=== PATIENT | female | born 1980 | race Caucasian/White ===

== ENCOUNTER → 2016-06-06 | Outpatient (CLI) | payer BC ==
[2016-06-06 16:47] LABS: BASO % 0.4 %; BASO ABS # 0.02 K/uL (0-0.2); COMPLETE YES; EOS % 1.1 %; HEMATOCRIT 40.3 % (37-47); LYMPH % 48.9 %; LYMPH ABS # 2.78 K/uL (1.2-3.4); MEAN CELL VOLUME 88.6 fL (80-100); MEAN CORPUSCULAR HEMOGLOBIN 30.3 pg (25-34); MEAN CORPUSCULAR HGB CONC 34.2 g/dl (32-36); MEAN PLATELET VOLUME 11.2 fL (7.4-10.4); MONO % 10.5 %; NEUT % 39.1 %; PLATELET COUNT 179 K/uL (130-400); RED BLOOD COUNT 4.55 M/uL (4.2-5.4); WHITE BLOOD COUNT 5.69 K/uL (4.8-10.8)
[2016-06-06 17:00] LABS: BLOOD UREA NITROGEN 10 mg/dl (7-18); BUN/CREATININE RATIO 11.5 (10-20); CALCIUM 8.8 mg/dl (8.5-10.1); CARBON DIOXIDE 27 mmol/L (21-32); CHLORIDE 104 mmol/L (98-107); CREATININE 0.85 mg/dl (0.60-1.20); GLUCOSE 103 mg/dl (70-99); POTASSIUM 3.7 mmol/L (3.5-5.1); SODIUM 141 mmol/L (136-145)
== END | disposition home or self-care (01) ==
LOC: C.LABBFT 16:51
PROVIDERS: ATTEND Nurse Practitioner
DX: R31.9 Hematuria, unspecified (principal)

== ENCOUNTER → 2016-06-06 | Outpatient (CLI) | payer BC ==
--- NOTE | 2016-06-06 15:28 | DIAGNOSTIC IMAGING REPORT ---
KUB CLINICAL HISTORY: Nephrolithiasis COMPARISON STUDY: CT scan performed 2008 FINDINGS: There is moderate stool throughout the colon. This partially secures the renal shadows. There is a 5 mm right renal calculus. No left renal calculi are visualized. There is a small calcific opacity projected over the region of the splenic flexure, possibly relating to enteric contents. There are tiny pelvic basin calcifications likely representing phleboliths. IMPRESSION: 1. 5 mm right renal calculus 2. Largely obscured left renal shadow Electronically signed by: Nicolas Riddle M.D. 06/06/2016 3:25 PM
== END | disposition home or self-care (01) ==
LOC: C.RAD1850 15:13
PROVIDERS: ATTEND Nurse Practitioner
DX: N20.0 Calculus of kidney (principal); R31.9 Hematuria, unspecified

== ENCOUNTER 2016-06-08 18:35 | Emergency (ER) | payer BC ==
[~2016-06-08] VITALS: Ht 167.6 cm; Wt 60.0 kg
[2016-06-08 18:42] VITALS: TEMP 37; Ht 167.6 cm; Wt 60.0 kg
[2016-06-08 19:23] LABS: BASO % 0.6 %; BASO ABS # 0.04 K/uL (0-0.2); COMPLETE YES; EOS % 1.2 %; HEMATOCRIT 42.2 % (37-47); IG% 0.2 %; LYMPH % 47.4 %; LYMPH ABS # 3.11 K/uL (1.2-3.4); MEAN CELL VOLUME 88.5 fL (80-100); MEAN CORPUSCULAR HEMOGLOBIN 30.2 pg (25-34); MEAN CORPUSCULAR HGB CONC 34.1 g/dl (32-36); MEAN PLATELET VOLUME 10.9 fL (7.4-10.4); MONO % 8.5 %; NEUT % 42.1 %; PLATELET COUNT 212 K/uL (130-400); RED BLOOD COUNT 4.77 M/uL (4.2-5.4); WHITE BLOOD COUNT 6.56 K/uL (4.8-10.8)
[2016-06-08 19:28] LABS: ISTAT CREATININE 0.8 mg/dl (0.6-1.3); ISTAT HEMOGLOBIN 14.3 g/dl (12.0-16.0); ISTAT IONIZED CALCIUM 1.22 mmol/l (1.12-1.32)
[2016-06-08 19:28] LABS: URINE APPEARANCE CLEAR (CLEAR); URINE BILIRUBIN NEG (NEG); URINE COLOR YELLOW; URINE EPITHELIAL CELL AUTO 0-5 /lpf (0-5); URINE NITRITE NEG (NEG); UROBILINOGEN NEG (NEG); ZZUR CULT IF INDIC CLEAN CATCH NO
[2016-06-08 19:30] LABS: BUN/CREATININE RATIO 9.2 (10-20); CREATININE 0.86 mg/dl (0.60-1.20); POTASSIUM 3.3 mmol/L (3.5-5.1)
[2016-06-08 19:32] LABS: MANUAL MICROSCOPIC REQUIRED? NO; REVIEW REQ? NO
[2016-06-08 19:33] LABS: ALB/GLOB RATIO 1.2 (0.9-2)
--- NOTE | 2016-06-08 19:37 | EMERGENCY ROOM VISIT NOTE ---
History First contact with patient: 18:46 Chief Complaint: HEMATURIA Stated Complaint: CT SCAN- KIDNEY STONES, RLQ PAIN Nursing Triage Summary: Pt reports hematuria over the weekend. 5mm kidney stone per KUB. Pt reports had outpt CT for kidney stone and told possible acute appy. Pt then to be rescanned with oral contrast which was given outpt and to be scanned at 1845. Pt told to return to the ER for the scan d/t insurance reasons. Denies right abd pain. History of Present Illness The patient is a 36 year old female who presents to the Emergency Room with complaints of abdominal pain. The patient reports that she has had hematuria on and off for the past several months. She was seen at her primary care provider's office earlier this week due to hematuria and "kidney pain" and states that she had a KUB which showed a 5 mm kidney stone in the right kidney, but no obstructing stones. The patient had labs drawn at that time which were normal. The patient states that she had a CT scan done today without contrast to rule out obstructing stone, but was called by her primary care provider telling her that she possibly had an appendicitis and would need a CT scan with IV and oral contrast. The patient was sent home with oral contrast and has completed drinking this. She denies any significant discomfort at this time, but does state that she is tender to palpation in the mid abdomen. She denies any nausea, vomiting, fevers or chills. He denies any history of abdominal surgery. Review of Systems A complete 10-point Review of Systems was discussed with the patient, with pertinent positives and negatives listed in the History of Present Illness. All remaining Review of Systems questions can be considered negative unless otherwise specified. Social History Smoking Status: Never Smoker Current/Historical Medications No Active Prescriptions or Reported Meds Allergies Coded Allergies: No Known Allergies (Verified , 06/08/16) Physical Exam Vital Signs Date Time Temp Pulse Resp B/P Pulse Ox O2 Delivery O2 Flow Rate FiO2 06/08/16 20:40 65 18 115/80 97 Room Air 06/08/16 18:42 37.0 72 18 143/80 97 Room Air Physical Exam VITALS: Vitals are noted on the nurse's note and reviewed by myself. Vital signs stable. GENERAL: This is a 36-year-old female, in no acute distress, nondiaphoretic, well-developed well-nourished. SKIN: Capillary reflex less than 2 seconds.gidity. HEART: Regular rate and rhythm without murmurs gallops or rubs. LUNGS: Clear to auscultation bilaterally without wheezes, rales or rhonchi. No retractions or accessory muscle use. ABDOMEN: Positive bowel sounds 4. There is minimal tenderness to the left mid abdomen and suprapubic region. NEURO: Patient was alert and oriented to person place and time. Medical Decision & Procedures ER Provider Diagnostic Interpretation: CT PELVIS W/IV AND ORAL CONT (CT) FINDINGS: There is no evidence of abdominal aortic dilatation. There is no evidence of pathologic adenopathy. There is no evidence of acute diverticulitis. The appendix appears normal. There is no free fluid. There is a 22 mm involuting right ovarian follicle. No bladder calculi are visualized. IMPRESSION: 1. Normal appendix 2. No acute inflammatory changes 3. 22 mm involuting right ovarian follicle Laboratory Results 06/08/16 19:00 Red Blood Count 4.77, Mean Corpuscular Volume 88.5, Mean Corpuscular Hemoglobin 30.2, Mean Corpuscular Hemoglobin Concent 34.1, Mean Platelet Volume 10.9, Neutrophils (%) (Auto) 42.1, Lymphocytes (%) (Auto) 47.4, Monocytes (%) (Auto) 8.5, Eosinophils (%) (Auto) 1.2, Basophils (%) (Auto) 0.6, Neutrophils # (Auto) 2.76, Lymphocytes # (Auto) 3.11, Monocytes # (Auto) 0.56, Eosinophils # (Auto) 0.08, Basophils # (Auto) 0.04 06/08/16 19:00 Test 06/08/16 19:00 06/08/16 19:12 White Blood Count 6.56 K/uL (4.8-10.8) Red Blood Count 4.77 M/uL (4.2-5.4) Hemoglobin 14.4 g/dL (12.0-16.0) Hematocrit 42.2 % (37-47) Mean Corpuscular Volume 88.5 fL (80-100) Mean Corpuscular Hemoglobin 30.2 pg (25-34) Mean Corpuscular Hemoglobin Concent 34.1 g/dl (32-36) Platelet Count 212 K/uL (130-400) Mean Platelet Volume 10.9 fL (7.4-10.4) Neutrophils (%) (Auto) 42.1 % Lymphocytes (%) (Auto) 47.4 % Monocytes (%) (Auto) 8.5 % Eosinophils (%) (Auto) 1.2 % Basophils (%) (Auto) 0.6 % Neutrophils # (Auto) 2.76 K/uL (1.4-6.5) Lymphocytes # (Auto) 3.11 K/uL (1.2-3.4) Monocytes # (Auto) 0.56 K/uL (0.11-0.59) Eosinophils # (Auto) 0.08 K/uL (0-0.5) Basophils # (Auto) 0.04 K/uL (0-0.2) RDW Standard Deviation 41.2 fL (36.4-46.3) RDW Coefficient of Variation 12.8 % (11.5-14.5) Immature Granulocyte % (Auto) 0.2 % Immature Granulocyte # (Auto) 0.01 K/uL (0.00-0.02) Urine Color YELLOW Urine Appearance CLEAR (CLEAR) Urine pH 6.0 (4.5-7.5) Urine Specific [place] 1.000 (1.000-1.030) Urine Protein NEG (NEG) Urine Glucose (UA) NEG (NEG) Urine Ketones NEG (NEG) Urine Occult Blood TRACE (NEG) Urine Nitrite NEG (NEG) Urine Bilirubin NEG (NEG) Urine Urobilinogen NEG (NEG) Urine Leukocyte Esterase NEG (NEG) Urine WBC (Auto) 0 /hpf (0-5) Urine RBC (Auto) 0-4 /hpf (0-4) Urine Hyaline Casts (Auto) 0 /lpf (0-5) Urine Epithelial Cells (Auto) 0-5 /lpf (0-5) Urine Bacteria (Auto) NEG (NEG) Urine Test NEG (NEG) Est Creatinine Clear Calc Drug Dose 83.0 ml/min Estimated GFR () 99.3 Estimated GFR (Non- 85.7 BUN/Creatinine Ratio 9.2 (10-20) Calcium Level 9.0 mg/dl (8.5-10.1) Total Bilirubin 0.5 mg/dl (0.2-1) Aspartate Amino Transf (AST/SGOT) 16 U/L (15-37) Alanine Aminotransferase (ALT/SGPT) 16 U/L (12-78) Alkaline Phosphatase 56 U/L (45-117) Total Protein 7.6 gm/dl (6.4-8.2) Albumin 4.1 gm/dl (3.4-5.0) Globulin 3.5 gm/dl (2.5-4.0) Albumin/Globulin Ratio 1.2 (0.9-2) Bedside Hemoglobin 14.3 g/dl (12.0-16.0) Bedside Hematocrit 42 % (37-47) Bedside Sodium 142 mEq/L (135-144) Bedside Potassium 3.4 mEq/L (3.3-5.0) Bedside Chloride 101 mEq/L (101-112) Bedside Total CO2 24 mEq/l (24-31) Anion Gap 21.0 mmol/L (16-25) Bedside Blood Urea Nitrogen 7 mg/dl (7-18) Bedside Creatinine 0.8 mg/dl (0.6-1.3) Bedside Glucose (other) 109 mg/dl (70-99) Bedside Ionized Calcium (Fredi) 1.22 mmol/l (1.12-1.32) Medical Decision Differential diagnosis includes appendicitis, cholecystitis, kidney stone, urinary tract infection, among others. The patient was evaluated as above. Labs were drawn and IV access was obtained. The patient was sent here for CT of the pelvis with IV and oral contrast to rule out a possible appendicitis seen on noncontrasted CT earlier today. The patient has no complaints at this time. She has minimal tenderness on examination. CT of the abdomen and pelvis with IV and oral contrast was able to visualize the appendix fully and showed a normal appendix without any inflammatory findings. Labs revealed no leukocytosis, anemia or concerning electrolyte abnormality. Urinalysis did show trace blood but no signs of infections. The patient was informed of the findings and will follow-up with her primary care provider. She verbalized understanding and was discharged home in good condition. Impression Primary Impression: Hematuria Departure Information Dispostion Home / Self-Care Condition GOOD Prescriptions No Active Prescriptions or Reported Meds Referrals Bruce Baez M.D. (PCP) Patient Instructions A [employer], [employer] Additional Instructions CT scan did not show evidence of appendicitis. Follow-up with Dr. Baez for further evaluation.
[2016-06-08] MEDS ORDERED: OPTIRAY 320 IV PRN (19:45)
--- NOTE | 2016-06-08 19:49 | DIAGNOSTIC IMAGING REPORT ---
CT PELVIS W/IV AND ORAL CONT (CT) CT DOSE: 167.00 mGy.cm CLINICAL HISTORY: Nephrolithiasis, hematuria. Possible appendicitis on prior noncontrast CT scan. TECHNIQUE: The patient was scanned following administration of dilute oral contrast, and in a dynamic helical fashion during intravenous administration of 110 cc of Optiray [id number]. COMPARISON STUDY: Noncontrast study dated 06/08/2016 FINDINGS: There is no evidence of abdominal aortic dilatation. There is no evidence of pathologic adenopathy. There is no evidence of acute diverticulitis. The appendix appears normal. There is no free fluid. There is a 22 mm involuting right ovarian follicle. No bladder calculi are visualized. IMPRESSION: 1. Normal appendix 2. No acute inflammatory changes 3. 22 mm involuting right ovarian follicle Electronically signed by: Nicolas Riddle M.D. 06/08/2016 7:48 PM Dictated Date/Time: 06/08/2016 7:43 PM
[2016-06-08 20:40] VITALS: BP 115/80; PULSE 65; O2SAT 97
== END 2016-06-08 20:59 | disposition home or self-care (01) ==
LOC: C.EDB 18:36
DX: R31.9 Hematuria, unspecified (principal)

== ENCOUNTER → 2016-06-08 | Outpatient (CLI) | payer BC ==
--- NOTE | 2016-06-08 16:15 | DIAGNOSTIC IMAGING REPORT ---
ABDOMEN AND PELVIS CT WITHOUT CONTRAST CT DOSE: 299.54 mGy.cm HISTORY: Flank pain. N20.0 [id number] Hematuria r/o [id number] TECHNIQUE: Multiaxial CT images of the abdomen and pelvis were performed without contrast. COMPARISON STUDY: KUB 06/06/2016. Abdomen and pelvis CT 07/02/2008. FINDINGS: The lung bases are clear. No fractures within the visualized osseous structures. The liver, gallbladder, spleen, adrenal glands, left kidney, and pancreas are unremarkable. No retroperitoneal lymphadenopathy. Trace pelvic free fluid, unchanged. The bladder, uterus, bilateral adnexa are unremarkable. The ureters are difficult to follow due to the lack of intraperitoneal fat. There is a 5 mm stone within the right kidney. No hydronephrosis. No definite ureteral calculi. Suboptimal evaluation for bowel pathology due to the lack of intravenous and oral contrast. However, there is no definite bowel obstruction. The appendix appears to be identified within a retrocecal location. The tip of the appendix appears fluid-filled and mildly distended up to 8 mm. There is suggestion of mild periappendiceal fat stranding. The proximal appendix is normal in caliber. The tip of the appendix is best in image 262 of [id number]. IMPRESSION: 1. Difficult evaluation for bowel pathology due to the lack of intravenous and oral contrast. However, the appendix appears to be fluid-filled and mildly distended up to 8 mm. There may be mild periappendiceal fat stranding. This is concerning for acute appendicitis. A dedicated CT of the pelvis with intravenous and oral contrast is recommended for confirmation. 2. Right-sided nephrolithiasis. No hydronephrosis. 3. Trace pelvic free fluid. Electronically signed by: Manpreet Venegas M.D. 06/08/2016 4:13 PM Dictated Date/Time: 06/08/2016 3:48 PM
== END | disposition home or self-care (01) ==
LOC: C.CTS 15:32
PROVIDERS: ATTEND Nurse Practitioner
DX: N20.0 Calculus of kidney (principal); R31.9 Hematuria, unspecified

== ENCOUNTER → 2017-10-09 | Outpatient (CLI) | payer BC ==
[2017-10-09 12:32] LABS: BASO % 0.3 %; BASO ABS # 0.01 K/uL (0-0.2); EOS % 2.6 %; EOS ABS # 0.09 K/uL (0-0.5); IG# 0.01 K/uL (0.00-0.02); LYMPH % 47.4 %; LYMPH ABS # 1.63 K/uL (1.2-3.4); MEAN CELL VOLUME 88.3 fL (80-100); MEAN CORPUSCULAR HEMOGLOBIN 28.7 pg (25-34); MEAN CORPUSCULAR HGB CONC 32.5 g/dl (32-36); MEAN PLATELET VOLUME 10.6 fL (7.4-10.4); MONO ABS # 0.31 K/uL (0.11-0.59); NEUT % 40.4 %; NEUT ABS # 1.39 K/uL (1.4-6.5); PLATELET COUNT 203 K/uL (130-400); RED CELL DISTRIBUTION WIDTH SD 48.4 fL (36.4-46.3); WHITE BLOOD COUNT 3.44 K/uL (4.8-10.8)
[2017-10-09 12:51] LABS: ALBUMIN 3.9 gm/dl (3.4-5.0); ALT/SGPT 22 U/L (12-78); AST/SGOT 17 U/L (15-37); BLOOD UREA NITROGEN 11 mg/dl (7-18); CALCIUM 8.4 mg/dl (8.5-10.1); CARBON DIOXIDE 30 mmol/L (21-32); CHOLESTEROL 139 mg/dl (0-200); CREATININE 0.87 mg/dl (0.60-1.20); GLUCOSE 91 mg/dl (70-99); POTASSIUM 3.7 mmol/L (3.5-5.1); SODIUM 140 mmol/L (136-145)
[2017-10-09 13:01] LABS: ALKALINE PHOSPHATASE 60 U/L (45-117); LDL CHOLESTEROL CALCULATED 68 mg/dl; TOTAL PROTEIN 7.1 gm/dl (6.4-8.2)
== END | disposition home or self-care (01) ==
LOC: C.LABBFT 07:39
PROVIDERS: ATTEND Internal Medicine
DX: R25.3 Fasciculation (principal); Z13.6 Encounter for screening for cardiovascular disorders